=== PATIENT | female | born 1995 | race African-American/Black ===

== ENCOUNTER 2022-03-22 04:17 | Emergency (ER) | payer MEDICAID ==
[~2022-03-22] VITALS: Ht 165.1 cm; Wt 91.0 kg
[2022-03-22 04:25] VITALS: BP 116/53
== END 2022-03-22 08:09 | disposition home or self-care (01) ==
LOC: ER 04:36
DX: R05.9 Cough, unspecified (principal); R06.02 Shortness of breath; J45.909 Unspecified asthma, uncomplicated; F17.290 Nicotine dependence, other tobacco product, uncomplicated
CPT/HCPCS: 71046; 99283